=== PATIENT | male | born 1975 | race Two or more races ===

== ENCOUNTER 2021-09-22 11:44 | Emergency (ER) | payer MEDICAID ==
[~2021-09-22] VITALS: Ht 172.7 cm; Wt 75.0 kg
[2021-09-22] MEDS ORDERED: HALOPERIDOL 5MG TABLET PO ONE (13:00)
[2021-09-22] MEDS ORDERED: LORAZEPAM 1MG TABLET PO ONE (13:00)
[2021-09-22 14:29] LABS: BASOPHILS % 1.9 % (0.0-2.0); EOSINOPHILS % 0.8 % (0.0-5.0); HEMATOCRIT. 38.3 % (42.0-52.0); HEMOGLOBIN. 12.7 g/dL (14.0-18.0); LYMPHOCYTES % 29.2 % (20.0-50.0); MEAN CORPUSCULAR HEMOGLOBIN 32.7 pg (28.0-32.0); MEAN PLATELET VOLUME 7.9 fl (7.4-10.4); NEUTROPHILS % 58.1 % (40.0-76.0); PLATELET 83 x1000/uL (130-400); RED BLOOD CELL COUNT 3.86 mill/uL (4.7-6.1)
[2021-09-22 14:34] LABS: CHLORIDE 101 mEq/L (98-107)
[2021-09-22 14:48] LABS: ETHANOL BLOOD 342 mg/dL
[2021-09-23 02:06] LABS: CLARITY URINE CLEAR (CLEAR); COLOR URINE DARK YELLOW (YELLOW); KETONES URINE NEGATIVE (NEGATIVE); LEUKOCYTE ESTERASE URINE TRACE (NEGATIVE); NITRITE URINE NEGATIVE (NEGATIVE); OCCULT BLOOD URINE NEGATIVE (NEGATIVE); PROTEIN URINE 2+ (NEGATIVE); SPECIFIC GRAVITY URINE 1.023 (1.005-1.030)
[2021-09-23 02:16] LABS: *AMPHETAMINES SCREEN URINE NEGATIVE (NEGATIVE); *BARBITURATES SCREEN URINE NEGATIVE (NEGATIVE); *BENZODIAZEPINES SCREEN URINE NEGATIVE (NEGATIVE); *COCAINE SCREEN URINE NEGATIVE (NEGATIVE); METHADONE URINE SCREEN NEGATIVE (NEGATIVE)
[2021-09-23 02:18] LABS: CANNABINOID URINE SCREEN NEGATIVE (NEGATIVE); OPIATES URINE SCREEN NEGATIVE (NEGATIVE); PHENCYCLIDINE URINE SCREEN NEGATIVE (NEGATIVE)
[2021-09-23] MEDS ORDERED: POTASSIUM CHLORIDE 20MEQ TABLET SR PO ONE ×2 (08:30→19:30)
[2021-09-23] MEDS ORDERED: ARIPIPRAZOLE 5MG TABLET PO ONE (12:45)
[2021-09-23] MEDS: SERTRALINE HCL 50MG TABLET PO SCH (17:45)
[2021-09-23 19:01] LABS: CHLORIDE 96 mEq/L (98-107)
[2021-09-23 19:04] LABS: ETHANOL BLOOD < 10 mg/dL
[2021-09-24] MEDS: SERTRALINE HCL 50MG TABLET PO SCH (09:29)
[2021-09-24 10:35] VITALS: BP 112/78
[2021-09-24] MEDS ORDERED: ARIPIPRAZOLE 5MG TABLET PO SCH (11:30)
[2021-09-24] MEDS ORDERED: ABIL5 PO (11:39)
[2021-09-24] MEDS ORDERED: SERT100T PO ×2 (11:39→11:49)
[2021-09-24] MEDS ORDERED: BENZ1TAB7 PO (11:49)
[2021-09-24] MEDS ORDERED: HAL5 PO (11:49)
[2021-09-24] MEDS ORDERED: TRAZ-252 MT (11:49)
[2021-09-24] MEDS ORDERED: ACAM333T8 PO (11:53)
[2021-09-25] MEDS ORDERED: SERTRALINE HCL 50MG TABLET PO SCH (09:00)
== END 2021-09-24 13:39 | disposition home or self-care (01) ==
LOC: ER 11:44
DX: F33.3 Major depressive disorder, recurrent, severe with psychotic symptoms (principal); R45.851 Suicidal ideations; R07.89 Other chest pain; F10.20 Alcohol dependence, uncomplicated; Y90.8 Blood alcohol level of 240 mg/100 ml or more; E87.6 Hypokalemia; D69.6 Thrombocytopenia, unspecified; Z20.822 Contact with and (suspected) exposure to COVID-19; E11.9 Type 2 diabetes mellitus without complications; I10 Essential (primary) hypertension; I25.2 Old myocardial infarction; Z75.1 Person awaiting admission to adequate facility elsewhere; Z79.899 Other long term (current) drug therapy
CPT/HCPCS: 36415; 71045; 80053; 80307; 80320; 80329; 83880; 84484; 85025; 99285; C9803; J1630; U0003; U0005; G0480

== ENCOUNTER 2025-07-28 18:34 | Inpatient (IN) | payer MEDICAID ==
[~2025-07-28] VITALS: Ht 177.8 cm; Wt 73.0 kg
[~2025-07-28 18:34] MED LIST: ACAM333T8 PO; BENZ1TAB79 PO; CHLO25CA10 MT; FOLI-43 PO; HALO5TAB2 PO; MULT-230 MT; SERT100T PO; THIA100T72 PO; TRAZ-252 MT; TRIMO RIGHTEYE
[2025-07-28 18:36] VITALS: O2SAT 95
[2025-07-28 19:11] LABS: HEMATOCRIT. 32.8 % (42.0-52.0); HEMOGLOBIN. 10.9 g/dL (14.0-18.0); MEAN PLATELET VOLUME 7.8 fl (7.4-10.4); RED BLOOD CELL COUNT 3.56 mill/uL (4.7-6.1); RED CELL DISTRIBUTION WIDTH 16.2 % (11.6-14.6)
[2025-07-28 19:24] LABS: CREATININE 0.6 mg/dL (0.6-1.3)
[2025-07-28 19:25] LABS: PLATELET 50 x1000/uL (130-400); UREA NITROGEN BLOOD 7 mg/dL (9-23)
[2025-07-28 19:26] LABS: ASPARTATE AMINOTRANSFERASE 329 IU/L (<34)
[2025-07-28 19:27] LABS: BILIRUBIN DIRECT 1.1 mg/dL (<=3.0); BILIRUBIN TOTAL 1.9 mg/dL (0.1-1.0); PROTEIN TOTAL 8.6 g/dL (6.0-8.3)
[2025-07-28 19:44] LABS: ATYPICAL LYMPHOCYTES 7; EOSINOPHILS % MANUAL 1.0 % (0.0-5.0); LYMPHOCYTES % MANUAL 55.0 % (20.0-50.0); MONOCYTES % MANUAL 6.0 % (2.0-8.0); NEUTROPHILS % MANUAL 31.0 % (45.0-75.0); PLATELET ESTIMATE MARKEDLY DECREASED
[2025-07-28] MEDS: FOLIC ACID 1 MG, THIAMINE HCL 100 MG, MVI, ADULT NO.1 10 ML in DEXTROSE 5% WATER 1,000 ML IV ONE (20:04)
[2025-07-28] MEDS: FAMOTIDINE 20MG TABLET PO ONE (20:58)
[2025-07-28] MEDS: MAGNESIUM 2 G PREMIX 50 ML IV ONE (20:58)
[2025-07-28] MEDS: POTASSIUM CHLORIDE 20MEQ TABLET SR PO ONE (20:59)
[2025-07-28] MEDS: ACETAMINOPHEN 325MG TABLET PO ONE (21:49)
[2025-07-28] MEDS ORDERED: IPRATROPIUM/ALBUTEROL 0.5-3(2.5)MG/3ML NEB HHN PRN (22:15)
[2025-07-28] MEDS ORDERED: CLONIDINE 0.1MG TABLET PO PRN (22:15)
[2025-07-28] MEDS ORDERED: ACETAMINOPHEN 325MG TABLET PO PRN (22:15)
[2025-07-28] MEDS ORDERED: DIPHENHYDRAMINE 50MG/ML VIAL IV PRN (22:15)
[2025-07-28] MEDS ORDERED: NALOXONE HCL 0.4MG/ML VIAL IV PRN (22:30)
[2025-07-28] MEDS ORDERED: POTASSIUM CHLORIDE 20MEQ TABLET SR PO SCH (22:30)
[2025-07-28 23:00] VITALS: BP 97/59; PULSE 66; RESP 18; TEMP 36.0288
[2025-07-28] MEDS: POTASSIUM CHLORIDE 20MEQ TABLET SR PO NR (23:13)
[2025-07-29] MEDS ORDERED: DEXTROSE 50% WATER 50ML SYRINGE IV PRN
[2025-07-29] MEDS: HYDROCODONE/ACETAMINOPHEN 5/325MG TABLET PO PRN (03:31)
[2025-07-29] MEDS: LORAZEPAM 0.5MG TABLET PO PRN (03:31)
[2025-07-29] MEDS: CHLORDIAZEPOXIDE 25MG CAPSULE PO SCH ×2 (05:45→21:22)
[2025-07-29] MEDS: SODIUM CHLORIDE 0.9% 1,000 ML IV SCH (05:46)
[2025-07-29 07:21] LABS: BASOPHILS % 0.5 % (0.0-2.0); EOSINOPHILS % 1.9 % (0.0-5.0); HEMATOCRIT. 32.5 % (42.0-52.0); HEMOGLOBIN. 10.7 g/dL (14.0-18.0); LYMPHOCYTES % 62.4 % (20.0-50.0); MEAN PLATELET VOLUME 8.3 fl (7.4-10.4); MONOCYTES % 9.9 % (2.0-8.0); NEUTROPHILS % 25.3 % (40.0-76.0); RED BLOOD CELL COUNT 3.51 mill/uL (4.7-6.1); RED CELL DISTRIBUTION WIDTH 15.9 % (11.6-14.6)
[2025-07-29 07:24] LABS: PHOSPHORUS 3.2 mg/dL (2.5-4.9)
[2025-07-29 07:26] LABS: CREATININE 0.5 mg/dL (0.6-1.3); INR 1.3
[2025-07-29 07:27] LABS: UREA NITROGEN BLOOD < 5 mg/dL (9-23)
[2025-07-29 07:28] LABS: FOLIC ACID (FOLATE) SERUM > 20.00 ng/mL (>5.38); LDL CHOLESTEROL 77.0 mg/dL (5-100); TRIGLYCERIDE 66.0 mg/dL (0-150)
[2025-07-29 07:29] LABS: T4 FREE 0.88 ng/dL (0.89-1.76)
[2025-07-29] MEDS: INSULIN LISPRO 100 UNITS/ML SUBCUT SCH (07:40)
[2025-07-29 08:00] VITALS: BP 99/59; PULSE 70; RESP 18; TEMP 36.7; O2SAT 99
[2025-07-29 08:17] LABS: PLATELET 44 x1000/uL (130-400)
[2025-07-29] MEDS: PANTOPRAZOLE SODIUM 40 MG/VIAL IV SCH (08:18)
[2025-07-29] MEDS: MULTIVITAMINS,THER W-MINERALS TABLET PO SCH (08:18)
[2025-07-29] MEDS: THIAMINE HCL 100MG TABLET PO SCH (08:19)
[2025-07-29] MEDS: FOLIC ACID 1MG TABLET PO SCH (08:20)
[2025-07-29] MEDS: AMLODIPINE 5MG TABLET PO SCH (09:00)
[2025-07-29 09:34] LABS: VITAMIN B12 SERUM > 2000 pg/mL (211-911)
[2025-07-29] MEDS ORDERED: POTASSIUM CHLORIDE 40 MEQ in DEXT 5% WATER 230 ML IV ONE (10:15)
[2025-07-29] MEDS: KCL 20MEQ/100ML X 2 FOR TOTAL KCL 40MEQ/200ML IV SCH (10:32)
[2025-07-29] MEDS: MAGNESIUM 2 G PREMIX 50 ML IV SCH (10:45)
[2025-07-29] MEDS: BLOOD SUGAR DIAGNOSTIC STRIP TEST SCH (11:17)
[2025-07-29 12:00] VITALS: BP 107/65; PULSE 62; RESP 18; TEMP 36.8; O2SAT 99
[2025-07-29] MEDS: TAMSULOSIN HCL 0.4MG SR CAPSULE PO SCH (13:13)
[2025-07-29] MEDS: FINASTERIDE 5MG TABLET PO SCH (13:13)
[2025-07-29 13:56] LABS: CLARITY URINE CLEAR (CLEAR); COLOR URINE DARK YELLOW (YELLOW); GLUCOSE URINE NEGATIVE (NEGATIVE); KETONES URINE NEGATIVE (NEGATIVE); LEUKOCYTE ESTERASE URINE NEGATIVE (NEGATIVE); NITRITE URINE NEGATIVE (NEGATIVE); OCCULT BLOOD URINE NEGATIVE (NEGATIVE); PH URINE 7.5 (4.5-8.0); PROTEIN URINE TRACE (NEGATIVE); SPECIFIC GRAVITY URINE 1.012 (1.005-1.030); UROBILINOGEN URINE 2.0 E.U./dL (0.2-1.0)
[2025-07-29 14:14] LABS: *AMPHETAMINES SCREEN URINE NEGATIVE (NEGATIVE); *BARBITURATES SCREEN URINE NEGATIVE (NEGATIVE); *BENZODIAZEPINES SCREEN URINE NEGATIVE (NEGATIVE); *COCAINE SCREEN URINE NEGATIVE (NEGATIVE); METHADONE URINE SCREEN NEGATIVE (NEGATIVE); OPIATES URINE SCREEN PRESUMPTIVE POSITIVE (NEGATIVE); PHENCYCLIDINE URINE SCREEN NEGATIVE (NEGATIVE)
[2025-07-29 14:15] LABS: CANNABINOID URINE SCREEN NEGATIVE (NEGATIVE); ECSTASY MDMA SCREEN URINE NEGATIVE (NEGATIVE)
[2025-07-29 14:23] LABS: MUCUS URINE TRACE /lpf (NONE/TRACE); SQUAMOUS EPITHELIAL CELL URINE NONE SEEN /lpf (RARE/1+)
[2025-07-29 14:24] LABS: BACTERIA URINE TRACE; RBC URINE 0-2 /hpf (0-2); WBC URINE NONE SEEN /hpf (0-2)
[2025-07-29 16:00] VITALS: BP 113/62; PULSE 91; RESP 17; TEMP 36.9; O2SAT 100
[2025-07-29 20:00] VITALS: BP 126/89; PULSE 91; RESP 18; TEMP 36.7; O2SAT 98
[2025-07-29] MEDS: ACETAMINOPHEN 325MG TABLET PO PRN (20:08)
[2025-07-30] VITALS: BP 107/68; PULSE 80; RESP 18; TEMP 37.2; O2SAT 98
[2025-07-30 04:00] VITALS: BP 112/69; PULSE 70; RESP 18; TEMP 37.5; O2SAT 98
[2025-07-30 06:49] LABS: ASPARTATE AMINOTRANSFERASE 230 IU/L (<34); BILIRUBIN DIRECT 1.4 mg/dL (<=3.0); BILIRUBIN TOTAL 2.7 mg/dL (0.1-1.0); PROTEIN TOTAL 7.4 g/dL (6.0-8.3)
[2025-07-30 08:00] VITALS: BP 123/71; PULSE 64; RESP 18; TEMP 36.5; O2SAT 99
[2025-07-30] MEDS: MULTIVITAMINS,THER W-MINERALS TABLET PO SCH (08:21)
[2025-07-30] MEDS: THIAMINE HCL 100MG TABLET PO SCH (08:27)
[2025-07-30] MEDS: FOLIC ACID 1MG TABLET PO SCH (08:27)
[2025-07-30 12:00] VITALS: BP 125/75; PULSE 68; RESP 16; TEMP 36.5; O2SAT 100
[2025-07-30] MEDS: ONDANSETRON HCL 4MG/2ML INJ IV PRN (14:02)
[2025-07-30 16:00] VITALS: BP 102/67; PULSE 80; RESP 18; TEMP 36.7; O2SAT 100
[2025-07-30 20:00] VITALS: BP 116/73; PULSE 81; RESP 18; TEMP 37; O2SAT 100
[2025-07-30 22:04] LABS: HEMATOCRIT. 32.1 % (42.0-52.0); HEMOGLOBIN. 10.8 g/dL (14.0-18.0); MEAN PLATELET VOLUME 8.9 fl (7.4-10.4); RED BLOOD CELL COUNT 3.46 mill/uL (4.7-6.1); RED CELL DISTRIBUTION WIDTH 16.3 % (11.6-14.6)
[2025-07-30 22:20] LABS: PLATELET 34 x1000/uL (130-400)
[2025-07-30 22:38] LABS: CREATININE 0.5 mg/dL (0.6-1.3); UREA NITROGEN BLOOD < 5 mg/dL (9-23)
[2025-07-30 22:39] LABS: ASPARTATE AMINOTRANSFERASE 186 IU/L (<34); EOSINOPHILS % MANUAL 2.0 % (0.0-5.0); LYMPHOCYTES % MANUAL 32.0 % (20.0-50.0); MONOCYTES % MANUAL 13.0 % (2.0-8.0); NEUTROPHILS % MANUAL 53.0 % (45.0-75.0); PLATELET ESTIMATE MARKEDLY DECREASED
[2025-07-30 22:40] LABS: BILIRUBIN TOTAL 3.0 mg/dL (0.1-1.0); PROTEIN TOTAL 7.9 g/dL (6.0-8.3)
[2025-07-30 23:17] LABS: HEPATITIS A AB IGM NEGATIVE (Negative)
[2025-07-30 23:18] LABS: HEPATITIS B CORE AB IGM NEGATIVE (Negative); HEPATITIS C AB NON REACTIVE (Neg) (Negative)
[2025-07-31] VITALS: BP 112/70; PULSE 78; RESP 17; TEMP 37; O2SAT 99
[2025-07-31 04:00] VITALS: BP 119/68; PULSE 81; RESP 18; TEMP 37.1; O2SAT 99
[2025-07-31 07:42] LABS: UREA NITROGEN BLOOD < 5 mg/dL (9-23)
[2025-07-31 07:43] LABS: CREATININE 0.5 mg/dL (0.6-1.3)
[2025-07-31 07:44] LABS: TROPONIN I HIGH SENSITIVITY < 4 ng/L (3.0-53)
[2025-07-31 07:45] LABS: ASPARTATE AMINOTRANSFERASE 159 IU/L (<34)
[2025-07-31 07:46] LABS: BILIRUBIN DIRECT 1.5 mg/dL (<=3.0); BILIRUBIN TOTAL 2.5 mg/dL (0.1-1.0); PHOSPHORUS 2.4 mg/dL (2.5-4.9); PROTEIN TOTAL 7.6 g/dL (6.0-8.3)
[2025-07-31 08:13] LABS: BASOPHILS % 0.5 % (0.0-2.0); EOSINOPHILS % 2.1 % (0.0-5.0); HEMATOCRIT. 32.7 % (42.0-52.0); HEMOGLOBIN. 10.9 g/dL (14.0-18.0); LYMPHOCYTES % 31.0 % (20.0-50.0); MEAN PLATELET VOLUME 9.1 fl (7.4-10.4); MONOCYTES % 11.6 % (2.0-8.0); NEUTROPHILS % 54.8 % (40.0-76.0); RED BLOOD CELL COUNT 3.56 mill/uL (4.7-6.1); RED CELL DISTRIBUTION WIDTH 16.2 % (11.6-14.6)
[2025-07-31 08:30] VITALS: BP 107/71; PULSE 82; RESP 17; TEMP 36.7; O2SAT 97
[2025-07-31] MEDS: POTASSIUM CHLORIDE 20MEQ/PACKET PO NR (09:29)
[2025-07-31] MEDS: MAGNESIUM 2 G PREMIX 50 ML IV SCH (09:29)
[2025-07-31 12:39] VITALS: BP 117/73; PULSE 89; RESP 18; TEMP 36.9; O2SAT 98
[2025-07-31 16:00] VITALS: BP 104/67; PULSE 87; RESP 20; TEMP 36.7; O2SAT 98
[2025-07-31 20:00] VITALS: BP 106/67; PULSE 85; RESP 18; TEMP 37.3; O2SAT 97
[2025-08-01] VITALS: BP 108/71; PULSE 78; RESP 18; TEMP 36.7; O2SAT 98
[2025-08-01 04:00] VITALS: BP 121/62; PULSE 85; RESP 18; TEMP 36.8; O2SAT 99
[2025-08-01 08:00] VITALS: BP 103/62; PULSE 90; RESP 19; TEMP 36.4; O2SAT 97
[2025-08-01 12:00] VITALS: BP 104/67; PULSE 98; RESP 18; TEMP 36.6; O2SAT 96
[2025-08-01 13:50] LABS: BASOPHILS % 0.7 % (0.0-2.0); EOSINOPHILS % 1.9 % (0.0-5.0); HEMATOCRIT. 33.1 % (42.0-52.0); HEMOGLOBIN. 11.1 g/dL (14.0-18.0); LYMPHOCYTES % 25.7 % (20.0-50.0); MEAN PLATELET VOLUME 8.7 fl (7.4-10.4); MONOCYTES % 10.0 % (2.0-8.0); NEUTROPHILS % 61.7 % (40.0-76.0); PLATELET 51 x1000/uL (130-400); RED BLOOD CELL COUNT 3.59 mill/uL (4.7-6.1); RED CELL DISTRIBUTION WIDTH 16.6 % (11.6-14.6)
[2025-08-01 14:07] LABS: INR 1.6
[2025-08-01 14:09] LABS: CREATININE 0.5 mg/dL (0.6-1.3)
[2025-08-01 14:10] LABS: UREA NITROGEN BLOOD 6 mg/dL (9-23)
[2025-08-01 14:11] LABS: ASPARTATE AMINOTRANSFERASE 100 IU/L (<34)
[2025-08-01 14:12] LABS: BILIRUBIN TOTAL 2.4 mg/dL (0.1-1.0); PROTEIN TOTAL 7.6 g/dL (6.0-8.3)
[2025-08-01 16:00] VITALS: BP 105/67; PULSE 90; RESP 20; TEMP 36.6; O2SAT 95
[2025-08-01] MEDS ORDERED: FINA5TAB11 PO (17:14)
[2025-08-01] MEDS ORDERED: FOLI-43 PO (17:14)
[2025-08-01] MEDS ORDERED: AMLO5TAB88 PO (17:14)
[2025-08-01] MEDS ORDERED: TAMS-54 PO (17:14)
[2025-08-01] MEDS ORDERED: SERT100T PO (17:14)
[2025-08-01] MEDS: POTASSIUM CHLORIDE 20MEQ/PACKET PO SCH (17:36)
[2025-08-01 20:00] VITALS: BP 108/77; PULSE 90; RESP 18; TEMP 36.7; O2SAT 97
[2025-08-01] MEDS: LACTULOSE 20G/30ML UDC PO SCH (23:28)
[2025-08-01] MEDS: RIFAXIMIN 550 MG TABLET PO SCH (23:28)
[2025-08-02] VITALS: BP 112/69; PULSE 85; RESP 16; TEMP 36.6
[2025-08-02 04:00] VITALS: BP 114/82; PULSE 85; RESP 16; TEMP 36.6
[2025-08-02 06:21] VITALS: BP 110/69; PULSE 82; RESP 20; TEMP 36.7; O2SAT 96
[2025-08-02 08:00] VITALS: BP 108/66; PULSE 98; RESP 17; TEMP 36.7; O2SAT 97
[2025-08-02] MEDS: PANTOPRAZOLE 40MG DR TABLET PO SCH (09:39)
[2025-08-02 11:23] LABS: BASOPHILS % 0.6 % (0.0-2.0); EOSINOPHILS % 1.6 % (0.0-5.0); HEMATOCRIT. 33.8 % (42.0-52.0); HEMOGLOBIN. 11.1 g/dL (14.0-18.0); LYMPHOCYTES % 28.9 % (20.0-50.0); MEAN PLATELET VOLUME 8.9 fl (7.4-10.4); MONOCYTES % 10.4 % (2.0-8.0); NEUTROPHILS % 58.5 % (40.0-76.0); PLATELET 66 x1000/uL (130-400); RED BLOOD CELL COUNT 3.67 mill/uL (4.7-6.1); RED CELL DISTRIBUTION WIDTH 16.7 % (11.6-14.6)
[2025-08-02 11:35] LABS: CREATININE 0.5 mg/dL (0.6-1.3)
[2025-08-02 11:36] LABS: UREA NITROGEN BLOOD 7 mg/dL (9-23)
[2025-08-02 11:37] LABS: ASPARTATE AMINOTRANSFERASE 87 IU/L (<34)
[2025-08-02 11:39] LABS: BILIRUBIN TOTAL 2.5 mg/dL (0.1-1.0); PROTEIN TOTAL 7.7 g/dL (6.0-8.3)
[2025-08-02 12:39] LABS: INR 1.4
[2025-08-02] MEDS: POTASSIUM CHLORIDE 20MEQ/PACKET PO SCH (13:25)
[2025-08-02] MEDS: LACTULOSE 20G/30ML UDC PO SCH (13:25)
[2025-08-02 16:00] VITALS: BP 107/73; PULSE 102; RESP 18; TEMP 36.7; O2SAT 95
[2025-08-02 18:18] VITALS: BP 107/73; PULSE 102; RESP 18; TEMP 98.1
[2025-08-03 13:37] LABS: PLATELET 36 x1000/uL (130-400)
== END 2025-08-02 18:53 | disposition home or self-care (01) | DRG 280 ==
LOC: ER 18:34 → 8WST 20:59 → EDBEDREQ 21:16 → EDBEDREQTM 21:16 → 7EST 08-01 02:18
PROVIDERS: ADMIT Student in an Organized Health Care Education/Training Program; ATTEND Student in an Organized Health Care Education/Training Program
PROC: GZHZZZZ Group Psychotherapy (ICD-10-PCS; principal; 2025-07-30)
PROC: GZ51ZZZ Individual Psychotherapy, Behavioral (ICD-10-PCS; 2025-07-30)
DX: K70.10 Alcoholic hepatitis without ascites (principal); G93.41 Metabolic encephalopathy; E72.20 Disorder of urea cycle metabolism, unspecified; D68.9 Coagulation defect, unspecified; R45.851 Suicidal ideations; K83.8 Other specified diseases of biliary tract; Z59.00 Homelessness unspecified; D64.9 Anemia, unspecified; D69.59 Other secondary thrombocytopenia; E11.9 Type 2 diabetes mellitus without complications; E83.42 Hypomagnesemia; N13.30 Unspecified hydronephrosis; E87.6 Hypokalemia; I10 Essential (primary) hypertension; Y90.8 Blood alcohol level of 240 mg/100 ml or more; K82.8 Other specified diseases of gallbladder; N40.1 Benign prostatic hyperplasia with lower urinary tract symptoms; R33.8 Other retention of urine; G40.909 Epilepsy, unspecified, not intractable, without status epilepticus; F41.9 Anxiety disorder, unspecified; F32.A Depression, unspecified; K76.89 Other specified diseases of liver; F10.129 Alcohol abuse with intoxication, unspecified; F10.139 Alcohol abuse with withdrawal, unspecified; Z79.899 Other long term (current) drug therapy; Z91.199 Patient's noncompliance with other medical treatment and regimen due to unspecified reason
CPT/HCPCS: 36415; 71045; 76705; 80048; 80053; 80061; 80076; 80305; 80307; 80320; 80329; 81003; 82040; 82105; 82140; 82550; 82607; 82728; 82746; 82962; 83036; 83540; 83550; 83735; 84100; 84153; 84439; 84443; 84481; 84484; 85025; 85044; 86705; 86709; 87340; 93005; 96365; 96368; 99285; J2405; J2470; J3411; J3475; J3480; J3490; J7070; G0480